=== PATIENT | male | born 1970 | race Caucasian/White ===

== ENCOUNTER 2024-02-21 12:24 | Emergency (ER) | payer OTHER, SELFPAY ==
[2024-02-21] VITALS (7 sets, daily range): BP systolic 118–136; BP diastolic 70–77; PULSE 67–98; RESP 16–23; TEMP 37.2; O2SAT 94–98; BMI 24.9
--- NOTE | 2024-02-21 12:40 | DI.RAD.S_ITS ---
PROCEDURE: XR CHEST 1V INDICATIONS: chest pain TECHNIQUE: One view of the chest was acquired. COMPARISON: None. FINDINGS: Surgical changes and devices: None. Lungs and pleura: Lungs are clear. No pleural effusions or pneumothorax. Mediastinum: Mediastinal contours appear normal. Heart size is normal. Bones and chest wall: No suspicious bony lesions. Overlying soft tissues appear unremarkable. IMPRESSION: No acute cardiopulmonary abnormality is seen. Note: A thin high density linear structure diagonally overlies the lower left neck, uncertain etiology. Please correlate clinically with reference to this image. Dictated by: Reji Jacome M.D. on 02/21/2024 at 13:32 Approved by: Reji Jacome M.D. on 02/21/2024 at 13:33
--- NOTE | 2024-02-21 12:48 | EKG_ITS ---
[facility] [address] [address] Test Date: 2024-02-21 Pat Name: Damian Cardoza Department: [facility] Room: Gender: Male Coat Baster: CED : 1970 Requested By: Order Number: [id number] Reading MD: Antonio Rubin Measurements Intervals [place] Rate: 94 P: 62 LA: 148 QRS: -72 QRSD: 92 T: 56 QT: 354 QTc: 442 Interpretive Statements Normal sinus rhythm Incomplete right bundle branch block Left anterior fascicular block Inferior infarct , age undetermined Electronically Signed On 02-23-2024 7:40:28 PDT by Antonio Rubin
[2024-02-21 12:54] LABS: Add Manual Diff / Slide Review NO; Basophils Absolute Auto 100 /uL (0-100); Basophils Percent Auto 0.7 % (0-2); Eosinophils Absolute Auto 200 /uL (0-450); Eosinophils Percent Auto 2.5 % (2-4); Hematocrit 43.6 % (41-53); Lymphocytes Absolute Auto 2400 /uL (1100-4500); Lymphocytes Percent Auto 26.2 % (25-40); Mean Corpuscular HGB Conc 34.3 % (30-36); Mean Corpuscular Hemoglobin 29.9 PG (26-34); Mean Corpuscular Volume 87.2 fL (80-100); Monocytes Absolute Auto 500 /uL (0-900); Monocytes Percent Auto 5.3 % (3-14); Neutrophils Absolute Auto 5900 /uL (1500-7000); Neutrophils Percent Auto 65.3 % (50-75); Platelet Count 345 X10^3/uL (150-400); Red Cell Distribution Width 12.7 % (11.6-14.8)
[2024-02-21 13:04] LABS: Prothrombin Time 11.8 SECONDS (9.4-12.5)
[2024-02-21 13:06] LABS: Alanine Aminotransferase 34 IU/L (<50); Albumin 4.4 g/dL (3.5-5.0); Albumin Globulin Ratio 1.3 (1.0-2.8); Alkaline Phosphatase 83 U/L (38-126); Aspartate Aminotransferase 25 IU/L (17-59); BUN Creatinine Ratio 29.2 (6-22); Bilirubin Total 0.5 mg/dL (0.2-1.3); Blood Urea Nitrogen 21 mg/dL (9-20); Calcium 9.5 mg/dL (8.4-10.2); Carbon Dioxide 28 mmol/L (22-32); Chloride 102 mmol/L (98-107); Creatine Kinase 52 U/L (55-170); Estimated Glomerular Filt Rate > 60 mL/min (>60); Globulin 3.3 g/dL (1.7-4.1); Glucose 98 mg/dL (70-100); HEMOLYSIS < 15 (0-50); Lipase 88 U/L (23-300); Magnesium 1.8 mg/dL (1.6-2.3); PTT Partial Thromboplastin Tim 36 SECONDS (25.1-36.5); Potassium 3.8 mmol/L (3.4-5.1); Sodium 138 mmol/L (137-145); Total Protein 7.7 g/dL (6.3-8.2)
[2024-02-21 13:18] LABS: NT-proBNP (BNP-Adult 18+) < 20 pg/mL (<125); Troponin I < 0.012 ng/mL (0.01-0.034)
--- NOTE | 2024-02-21 13:32 | ED_ITS ---
HPI - General Adult General Chief complaint: Dizziness Stated complaint: feels like he's going to pass out Time Seen by Provider: 02/21/24 13:19 Source: patient Mode of arrival: Wheelchair History of Present Illness HPI narrative: Patient is a 53-year-old male who is here for evaluation of a presyncopal episode that occurred earlier today. Patient states that this morning he started to generally not feel very well. Was feeling very clammy. No other real associated symptoms until at lunchtime today he was waiting for his food. He stated that all of a sudden he felt like he was going to pass out. No palpitations. No chest pain. No shortness of breath. Stated that he started to get tunnel vision. He was able to go to his car and sit down. After a period of time the symptoms have improved but not completely resolved. Here in the ER still feeling somewhat clammy. Recently had an echocardiogram secondary to a right bundle-branch block known on an EKG. This is done as an outpatient. Was told that everything was okay with his echocardiogram. Related Data Previous Rx's Medication Instructions Recorded cyclobenzaprine 5 mg tablet 5 mg PO TID PRN muscle spasm #20 11/27/21 tabs Allergies Allergy/AdvReac Type Severity Reaction Status Date / Time aspirin Allergy Severe Anaphylaxis Verified 02/21/24 12:39 Review of Systems Review of Systems ROS Unobtainable: All systems reviewed & are unremarkable except as noted in HPI and below Patient History Social History Smoking Status: Never smoker Smoking Status: Never smoker alcohol intake frequency: 0-2 drinks per day Substance Use Type: does not use Exam Initial Vital Signs Initial Vital Signs: Vital Signs Temperature 99.0 F 02/21/24 12:34 Pulse Rate 98 H 02/21/24 12:34 Respiratory Rate 18 02/21/24 12:34 Blood Pressure 135/77 02/21/24 12:34 Pulse Oximetry 98 02/21/24 12:34 Oxygen Delivery Method Room Air 02/21/24 12:34 Const General: cooperative, comfortable and No ill appearing HENMT Head: normal to inspection and normocephalic Resp Effort & Inspection: normal respiratory effort Auscultation: clear to auscultation bilaterally Cardio Rate: regular rate Rhythm: regular rhythm Skin General: no rashes or lesions noted Neuro General: patient alert, patient awake, patient oriented x3 and moves all extremities Extrem General: capillary refill normal Course Orders Ordered: ED Orders 02/21/24 12:40 XR chest 1V Stat EKG-12 Lead Stat 02/21/24 12:45 Complete Blood Count AUTO DIFF Stat Comprehensive Metabolic Panel Stat Lipase Stat Magnesium Stat NT-proBNP (BNP-Adult 18+) Stat PTT Partial Thromboplastin Fernando Stat Prothrombin Time INR Stat Troponin & CK Cardiac Panel Stat Discontinued Medications Sodium Chloride (Normal Saline 0.9%) 1,000 mls @ 1,000 mls/hr IV BOLUS ONE Stop: 02/21/24 14:31 Last Infusion: 02/21/24 14:34 Dose: Infused Documented By: Admin: 02/21/24 13:57 Dose: 1,000 mls/hr Documented By: SAMI Vital Signs Vital signs: Vital Signs - 8 hr 02/21/24 12:34 02/21/24 13:11 02/21/24 13:11 Temperature 99.0 F Pulse Rate 98 H 88 Respiratory Rate 18 18 Blood Pressure 135/77 121/76 Pulse Oximetry 98 97 Oxygen Delivery Method Room Air Room Air Medical Decision Making Lab Data Lab results reviewed: Yes I reviewed the patient's lab results. 02/21/24 12:45 02/21/24 12:45 Labs: Lab Results 02/21/24 Range/Units 12:45 WBC 9.0 (4.5-11.0) X10^3/uL RBC 5.00 (4.5-5.9) X10^6/uL Hgb 15.0 (13.5-17.5) g/dL Hct 43.6 (41-53) % MCV 87.2 (80-100) fL MCH 29.9 (26-34) PG MCHC 34.3 (30-36) % RDW 12.7 (11.6-14.8) % Plt Count 345 (150-400) X10^3/uL Neut % (Auto) 65.3 (50-75) % Lymph % (Auto) 26.2 (25-40) % [place] % (Auto) 5.3 (3-14) % Eos % (Auto) 2.5 (2-4) % Baso % (Auto) 0.7 (0-2) % Neut # (Auto) 5900 (9323-3283) /uL Lymph # (Auto) 2400 (3711-3460) /uL [place] # (Auto) 500 (0-900) /uL Eos # (Auto) 200 (0-450) /uL Baso # (Auto) 100 (0-100) /uL PT 11.8 (9.4-12.5) SECONDS INR 1.0 (0.9-1.3) APTT 36 (25.1-36.5) SECONDS Sodium 138 (137-145) mmol/L Potassium 3.8 (3.4-5.1) mmol/L Chloride 102 (98-107) mmol/L Carbon Dioxide 28 (22-32) mmol/L BUN 21 H (9-20) mg/dL Creatinine 0.72 (0.66-1.25) mg/dL Estimated GFR > 60 (>60) mL/min BUN/Creatinine Ratio 29.2 H (6-22) Glucose 98 (70-100) mg/dL Calcium 9.5 (8.4-10.2) mg/dL Magnesium 1.8 (1.6-2.3) mg/dL Total Bilirubin 0.5 (0.2-1.3) mg/dL AST 25 (17-59) IU/L ALT 34 (<50) IU/L Alkaline Phosphatase 83 (38-126) U/L Total Creatine Kinase 52 L (55-170) U/L Troponin I < 0.012 (0.01-0.034) ng/mL NT-Pro-B Natriuret Pep < 20 (<125) pg/mL Total Protein 7.7 (6.3-8.2) g/dL Albumin 4.4 (3.5-5.0) g/dL Globulin 3.3 (1.7-4.1) g/dL Albumin/Globulin Ratio 1.3 (1.0-2.8) Lipase 88 (23-300) U/L Imaging Data Chest x-ray: Radiologist's Impression: PROCEDURE: XR CHEST 1V INDICATIONS: chest pain TECHNIQUE: One view of the chest was acquired. COMPARISON: None. FINDINGS: Surgical changes and devices: None. Lungs and pleura: Lungs are clear. No pleural effusions or pneumothorax. Mediastinum: Mediastinal contours appear normal. Heart size is normal. Bones and chest wall: No suspicious bony lesions. Overlying soft tissues appear unremarkable. IMPRESSION: No acute cardiopulmonary abnormality is seen. Note: A thin high density linear structure diagonally overlies the lower left neck, uncertain etiology. Please correlate clinically with reference to this image. ECG Data Attestation: I personally reviewed and interpreted this ECG as follows: Interpretation: Sinus rhythm Ventricular rate 94 Normal axis Normal QRS No ST T wave changes MDM Narrative Medical decision making narrative: Patient has had sinus rhythm since arrival here in the emergency department labs are unremarkable. EKG is unremarkable. Is not anemic. Low suspicion for CVA/TIA. We discussed the possibility of a transient arrhythmia. Will discharge patient home with return precautions. He expressed understanding and agreement with plan. Discharge Plan Departure Patient Disposition: Home Clinical Impression: Pre-syncope Instructions: DI for Dizziness-Nonvertigo Activity Restrictions/Additional Instructions: Recommend that you take any medications as directed. Contact your primary care doctor for follow-up. Return to the emergency department for new or worsening symptoms. Prescriptions: No Action cyclobenzaprine 5 mg tablet 5 mg PO TID PRN (Reason: muscle spasm) Qty: 20 0RF Referrals: Miscellaneous,Doctor, [Primary Care Provider] - Stand Alone Forms: Patient Portal/API
[2024-02-21] MEDS: SODIUM CHLORIDE 0.9% 1,000 ML 1000 ML IV (13:57)
== END 2024-02-21 15:06 | disposition home or self-care (01) ==
PROVIDERS: Emergency Provider Emergency Medicine
DX: R55 Syncope and collapse (principal); R07.9 Chest pain, unspecified
CPT/HCPCS: 36415; 71045; 80053; 82550; 83690; 83735; 83880; 84484; 85025; 85610; 85730; 93005; 96360; 99284